=== PATIENT | female | born 1985 | race Caucasian/White ===

== ENCOUNTER 2018-04-04 18:44 | Emergency (ER) | payer MEDICAID ==
--- NOTE | 2018-04-04 19:06 | ER Document Report ---
ED General <TERE SAENZ - Last Filed: 04/04/18 23:08> - General Mode of Arrival: Medic Information source: Patient, Emergency Med Personnel <VINICIUS CERVANTES - Last Filed: 04/12/18 19:49> - General Stated Complaint: POSSIBLE SEIZURE Time Seen by Provider: 04/04/18 18:59 Notes: 33 y.o female presents to the ED via EMS s/p seizure. EMS reports 4 seizures per bystander. Pt reports that she doesn't know what happened. She reports that she woke up today and took a shower and went outside to smoke a cigarette and then went back inside to bed to rest because she feels very tired and then was woken when EMS arrived. Pt reports having seizures in the past and was told that they were stress related. She states that she has not had a seizure since 2011. Pt reports that she feels ok currently, just tired. She denies any pain. She denies urinating on herself. Pt reports that she takes Buspar for anxiety and depression. She states that she started taking it last August but had stopped it and then recently began taking it again. Pt recently moved here from [place], she has 5 kids. 4 of her kids are living with her currently at her friend's house and the 5th is in [place] at school. She states that the father of her children lives in [place] still. She states that she starts work this and she is looking for her own place to live. (VINICIUS CERVANTES) - Related Data Allergies/Adverse Reactions: amoxicillin Allergy (Verified 04/04/18 19:15) escitalopram [From Lexapro] Allergy (Verified 04/04/18 19:15) morphine Allergy (Verified 04/04/18 19:15) Past Medical History - Social History Smoking Status: Current Every Day Smoker Cigarette use (# per day): Yes - 1-1.5 packs/day at most Chew tobacco use (# tins/day): No Smoking Education Provided: Yes Frequency of alcohol use: Occasional - "yes but not every day" Drug Abuse: None Family History: Reviewed & Not Pertinent <VINICIUS CERVANTES - Last Filed: 04/12/18 19:49> Review of Systems - Review of Systems Constitutional: See HPI, Other - tired EENT: No symptoms reported Cardiovascular: No symptoms reported Respiratory: No symptoms reported Gastrointestinal: No symptoms reported Genitourinary: No symptoms reported Female Genitourinary: No symptoms reported Musculoskeletal: No symptoms reported Skin: No symptoms reported Hematologic/Lymphatic: No symptoms reported Neurological/Psychological: See HPI, Seizure -: Yes All other systems reviewed and negative <VINICIUS CERVANTES - Last Filed: 04/12/18 19:49> Physical Exam <TERE SAENZ - Last Filed: 04/04/18 23:08> <VINICIUS CERVANTES - Last Filed: 04/12/18 19:49> - Vital signs Vitals: Temp 98.7 F 04/04/18 18:44 - Notes Notes: Physical Exam: General: Alert, Oriented. Smells of alcohol. hoarse voice. HEENT: Normocephalic. Atraumatic. PERRL. Extraocular movements intact. Oropharynx clear. Neck: Supple. Non-tender. Respiratory: No respiratory distress. Rhonchi. Equal breath sounds bilaterally. Cardiovascular: Regular rate and rhythm. Abdominal: Normal Inspection. Non-tender. No distension. Normal Bowel Sounds. Back: Non-tender. No deformity or step off. Extremities: Moves all four extremities. Upper extremities: Normal inspection. Normal ROM. Lower extremities: Normal inspection. No edema. Normal ROM. Neurological: Normal cognition. AAOx3. Normal speech. Psychological: Appears depressed. Skin: Warm. Dry. Normal color. (VINICIUS CERVANTES) Course - Laboratory Result Diagrams: 04/04/18 18:34 04/04/18 18:34 <TERE SAENZ - Last Filed: 04/04/18 23:08> - Laboratory Result Diagrams: 04/04/18 18:34 04/04/18 18:34 <VINICIUS CERVANTES - Last Filed: 04/12/18 19:49> - Re-evaluation Re-evalutation: 04/04/18 23:04 The patient's friend has arrived, reports patient has not been sleeping much lately and has been drinking lots of caffeine. The patient also reports a recent stressful event which is similar to what used to trigger her seizures. I would suspect that if she does have a seizure disorder, the lack of sleep, the excessive use of caffeine, the use of alcohol, and the lack of sleep with the urinary tract infection could be enough to lower the seizure threshold resulting in the seizures that were witnessed tonight. (TERE SAENZ) - Vital Signs Vital signs: Temp Pulse Resp BP Pulse Ox 98.7 F 17 93/55 L 98 04/04/18 18:44 04/04/18 22:01 04/04/18 22:00 04/04/18 22:01 - Laboratory Laboratory results interpreted by me: 04/04/18 04/04/18 04/04/18 18:34 21:28 21:31 Sodium 145.1 H Chloride 108 H Carbon Dioxide 21 L BUN 5 L POC Glucose 203 H Urine Protein 100 H Urine Blood LARGE H Discharge <TERE SAENZ - Last Filed: 04/04/18 23:08> <VINICIUS CERVANTES - Last Filed: 04/12/18 19:49> - Discharge Clinical Impression: Seizure, Alcohol intoxication, Depression, Urinary tract infection Condition: Stable Disposition: HOME, SELF-CARE Additional Instructions: Seizure: You have had a seizure. Seizure disorders (epilepsy) of one sort or another affect about one out of 50 people. The seizure occurs because of abnormal electrical activity in the brain. Seizures may be due to drugs and alcohol, strokes, brain injury, or infection. In the most common form of epilepsy, no cause can be found. You will require further evaluation to determine the cause of your seizure, and to determine whether anti-seizure medication is required. This follow-up testing is important, so please call us if you encounter problems with scheduling of tests or appointments. YOU SHOULD NOT DRIVE until released to do so by your physician. The law requires that seizures be reported to the diesel pile driver operator's license bureau--a seizure while driving could be catastrophic. Call the doctor if seizures recur, or if you develop new symptoms such as fever, severe headache, stiff neck, confusion or increasing sleepiness, weakness or numbness, or visual problems. Urinary Tract Infection: Your evaluation indicates that you have a urinary tract infection. This is due to germs growing in the bladder. This is a common problem. This infection usually responds quickly to antibiotics. Your antibiotic should be taken exactly as prescribed. Drink plenty of fluids -- three to four quarts a day. Occasionally, a bladder anesthetic will be prescribed to help stop the feeling of urgency until the antibiotic has a chance to clear the infection. This may cause your urine to be dark orange. Certain urine infections require a culture. If the doctor obtained a culture, the results will be back in two days. You should call to see if a change in treatment is needed. A repeat urinalysis after you finish treatment is often recommended. The physician will let you know if further testing is required. Call the doctor if you develop fever, chills, flank pain, inability to urinate, or blood in the urine. Take the medication as prescribed. Drink plenty of fluids. Get plenty of sleep and rest. Avoid caffeine and any other stimulants. Follow-up with a local medical doctor to discuss management of your seizures, stress and sleeping difficulties. RETURN TO THE EMERGENCY ROOM IF ANY NEW OR WORSENING SYMPTOMS. Prescriptions: Cephalexin 10 ml PO TID #150 ml Scribe Attestation: 04/04/18 20:05 I personally performed the services described in the documentation, reviewed and edited the documentation which was dictated to the scribe in my presence, and it accurately records my words and actions. (TERE SAENZ) Scribe Documentation - Scribe Written by August:: August Alcala 04/04/18 1908 acting as scribe for :: Alirio <VINICIUS CERVANTES - Last Filed: 04/12/18 19:49>
[2018-04-04 19:20] LABS: ABSOLUTE BASOPHILS # (AUTO) 0.1 10^3/uL (0.0-0.2); ABSOLUTE EOSINOPHILS # (AUTO) 0.1 10^3/uL (0.0-0.6); ABSOLUTE MONOCYTES (AUTO) 0.5 10^3/uL (0.1-1.4); ABSOLUTE NEUT (AUTO) 7.2 10^3/uL (1.7-8.2); BASOPHILS % (AUTO) 0.5 % (0-2); HEMATOCRIT 38.1 % (36.0-47.0); HEMOGLOBIN 13.2 g/dL (12.0-15.5); LYMPHOCYTES % (AUTO) 20.3 % (13-45); MEAN CORPUSCULAR HEMOGLOBIN 33.2 pg (27.0-33.4); MEAN CORPUSCULAR HGB CONC 34.6 g/dL (32.0-36.0); MEAN CORPUSCULAR VOLUME 96 fl (80-97); MONOCYTES % (AUTO) 5.1 % (3-13); PLATELET COUNT 355 10^3/uL (150-450); RED BLOOD COUNT 3.97 10^6/uL (3.72-5.28); RED CELL DISTRIBUTION WIDTH 12.6 % (11.5-14.0); SEGMENTED NEUTROPHILS % (AUTO) 73.1 % (42-78); TOTAL CELLS COUNTED % (AUTO) 100 %; WHITE BLOOD COUNT 9.8 10^3/uL (4.0-10.5)
[2018-04-04 19:32] LABS: ALANINE AMINOTRANSFERASE 18 U/L (9-52); ALBUMIN 4.7 g/dL (3.5-5.0); ALCOHOL 71 mg/dL (NONE DETECTED); ALKALINE PHOSPHATASE 51 U/L (38-126); ANION GAP 16 (5-19); ASPARTATE AMINO TRANSFERASE 15 U/L (14-36); BILIRUBIN,DIRECT 0.3 mg/dL (0.0-0.4); BILIRUBIN,TOTAL 0.7 mg/dL (0.2-1.3); BLOOD UREA NITROGEN 5 mg/dL (7-20); CALCIUM 9.5 mg/dL (8.4-10.2); CARBON DIOXIDE 21 mmol/L (22-30); CHLORIDE 108 mmol/L (98-107); GLUCOSE 82 mg/dL (75-110); SODIUM 145.1 mmol/L (137-145); TOTAL PROTEIN 7.1 g/dL (6.3-8.2)
[2018-04-04] MEDS ORDERED: DEXTROSE 5%-LACTATED RINGERS 1,000 ML IV ONE (20:04)
[2018-04-04 22:00] LABS: APPEARANCE,URINE CLOUDY; BILIRUBIN,URINE NEGATIVE (NEGATIVE); COLOR,URINE RED; GLUCOSE, URINE NEGATIVE (NEGATIVE); KETONES,URINE NEGATIVE (NEGATIVE); LEUKOCYTE ESTERASE,URINE NEGATIVE (NEGATIVE); NITRITE,URINE NEGATIVE (NEGATIVE); PROTEIN,URINE 100 mg/dL (NEGATIVE); URINE SPECIFIC GRAVITY 1.011; UROBILINOGEN,URINE NEGATIVE mg/dL (<2.0)
[2018-04-04 22:20] LABS: URINE AMPHETAMINES SCREEN NEGATIVE; URINE BARBITURATES SCREEN NEGATIVE; URINE BENZODIAZEPINES SCREEN NEGATIVE; URINE COCAINE SCREEN NEGATIVE; URINE MARIJUANA (THC) SCREEN NEGATIVE; URINE METHADONE SCREEN NEGATIVE; URINE PHENCYCLIDINE SCREEN NEGATIVE
[2018-04-04 22:57] VITALS: BP 93/55
[2018-04-04] MEDS ORDERED: CEPHALEXIN 500 MG CAPSULE PO ONE (23:02)
[2018-04-04] MEDS ORDERED: LORAZEPAM 1 MG TABLET PO ONE (23:03)
== END 2018-04-04 23:10 | disposition home or self-care (01) ==
LOC: ER 18:44
DX: R56.9 Unspecified convulsions (principal); F32.9 Major depressive disorder, single episode, unspecified; N39.0 Urinary tract infection, site not specified; F10.129 Alcohol abuse with intoxication, unspecified; F17.210 Nicotine dependence, cigarettes, uncomplicated; Z88.0 Allergy status to penicillin
CPT/HCPCS: 36415; 80053; 80307; 81001; 82962; 83735; 84703; 85025; 87086; 96360; 99284

== ENCOUNTER 2019-02-14 12:17 | Emergency (ER) | payer MEDICAID ==
[2019-02-14] MEDS ORDERED: OXYCODONE-ACETAMINOPHEN 5-325 MG TABLET PO ONE (13:25)
[2019-02-14 14:01] LABS: ABSOLUTE EOSINOPHILS # (AUTO) 0.1 10^3/uL (0.0-0.6); ABSOLUTE LYMPHOCYTES (AUTO) 1.7 10^3/uL (0.5-4.7); ABSOLUTE MONOCYTES (AUTO) 0.3 10^3/uL (0.1-1.4); ABSOLUTE NEUT (AUTO) 8.9 10^3/uL (1.7-8.2); BASOPHILS % (AUTO) 0.3 % (0-2); EOSINOPHILS % (AUTO) 1.3 % (0-6); HEMATOCRIT 39.4 % (36.0-47.0); HEMOGLOBIN 13.3 g/dL (12.0-15.5); LYMPHOCYTES % (AUTO) 15.2 % (13-45); MEAN CORPUSCULAR HEMOGLOBIN 31.9 pg (27.0-33.4); MEAN CORPUSCULAR HGB CONC 33.7 g/dL (32.0-36.0); MEAN CORPUSCULAR VOLUME 95 fl (80-97); MONOCYTES % (AUTO) 2.6 % (3-13); PLATELET COUNT 324 10^3/uL (150-450); RED BLOOD COUNT 4.16 10^6/uL (3.72-5.28); RED CELL DISTRIBUTION WIDTH 12.9 % (11.5-14.0); SEGMENTED NEUTROPHILS % (AUTO) 80.6 % (42-78); TOTAL CELLS COUNTED % (AUTO) 100 %; WHITE BLOOD COUNT 11.1 10^3/uL (4.0-10.5)
[2019-02-14 14:21] LABS: ALANINE AMINOTRANSFERASE 13 U/L (9-52); ALBUMIN 4.1 g/dL (3.5-5.0); ALKALINE PHOSPHATASE 51 U/L (38-126); ANION GAP 8 (5-19); ASPARTATE AMINO TRANSFERASE 18 U/L (14-36); BILIRUBIN,DIRECT 0.2 mg/dL (0.0-0.4); BILIRUBIN,TOTAL 0.3 mg/dL (0.2-1.3); BLOOD UREA NITROGEN 7 mg/dL (7-20); CALCIUM 9.5 mg/dL (8.4-10.2); CARBON DIOXIDE 28 mmol/L (22-30); CHLORIDE 106 mmol/L (98-107); GLUCOSE 84 mg/dL (75-110); POTASSIUM 4.6 mmol/L (3.6-5.0); SODIUM 141.8 mmol/L (137-145); TOTAL PROTEIN 6.4 g/dL (6.3-8.2)
[2019-02-14 15:43] LABS: APPEARANCE,URINE TURBID; COLOR,URINE RED
[2019-02-14 15:46] LABS: BILIRUBIN,URINE NEGATIVE (NEGATIVE); GLUCOSE, URINE NEGATIVE (NEGATIVE); KETONES,URINE NEGATIVE (NEGATIVE); LEUKOCYTE ESTERASE,URINE NEGATIVE (NEGATIVE); NITRITE,URINE NEGATIVE (NEGATIVE); PROTEIN,URINE >=500 mg/dL (NEGATIVE); URINE SPECIFIC GRAVITY 1.019; UROBILINOGEN,URINE NEGATIVE mg/dL (<2.0)
--- NOTE | 2019-02-14 16:40 | RADIOLOGY REPORT (SQ) ---
EXAM DESCRIPTION: U/S NON OB PEL TV W/DOPPLER COMPLETED DATE/TIME: 02/14/2019 4:25 pm REASON FOR STUDY: heavy vaginal bleeding, abd pain COMPARISON: None. TECHNIQUE: Dynamic and static grayscale images acquired of the pelvis via transvaginal approach and recorded on PACS. Additional selected color Doppler and spectral images recorded. LIMITATIONS: None. FINDINGS: UTERUS: Contour normal. No mass. ENDOMETRIAL STRIPE: No focal or generalized thickening. No masses. CERVIX: No nabothian cysts. RIGHT OVARY AND DOPPLER: Normal size. No worrisome masses. Normal arterial vascular flow without evid ence for torsion. LEFT OVARY AND DOPPLER: Normal size. No worrisome masses. Normal arterial vascular flow without evide nce for torsion. FREE FLUID: None noted. OTHER: No other significant finding. MEASUREMENTS: UTERUS: 9.4 x 5.5 x 4.6 cm ENDOMETRIAL STRIPE: 5 mm RIGHT OVARY: 2.7 x 1.9 x 1.8 cm. LEFT OVARY: 1.6 x 1.2 x 1.4 cm. IMPRESSION: Unremarkable pelvic ultrasound. TECHNICAL DOCUMENTATION: JOB ID: [id number] [employer]- All Rights Reserved Rev Reading location - IP/workstation name: [email or web address]
--- NOTE | 2019-02-14 17:25 | ER Document Report ---
ED General - General Chief Complaint: Abdominal Pain Stated Complaint: ABDOMINAL PAIN,VAGINAL BLEEDING Time Seen by Provider: 02/14/19 13:18 Primary Care Provider: MODESTA CLINE MD [Primary Care Provider] - Follow up as needed Mode of Arrival: Ambulatory Information source: Patient Notes: Patient presents to the emergency department with complaints of heavy vaginal bleeding. She reports she started her period yesterday and began having severe abdominal pain. Patient reports the bleeding has gotten heavier along with pain. She was seen at urgent care and sent over to be evaluated because of the blood in her urine. (not a catheter collection). dENIES other symptoms such as fever vomiting diarrhea. Reports she is going through a pad and a half every hour. TRAVEL OUTSIDE OF THE [place] IN LAST 30 DAYS: No - HPI Onset: Yesterday Quality of pain: Cramping Severity: Severe Pain Level: 5 Associated symptoms: None Exacerbated by: Denies Relieved by: Denies Similar symptoms previously: Yes Recently seen / treated by doctor: Yes - Related Data Allergies/Adverse Reactions: amoxicillin Allergy (Verified 02/14/19 12:18) escitalopram [From Lexapro] Allergy (Verified 02/14/19 12:18) morphine Allergy (Verified 02/14/19 12:18) Past Medical History - General Information source: Patient - Social History Smoking Status: Current Every Day Smoker Cigarette use (# per day): Yes Chew tobacco use (# tins/day): No Frequency of alcohol use: Occasional Drug Abuse: None Lives with: Family Family History: Reviewed & Not Pertinent Patient has suicidal ideation: No Patient has homicidal ideation: No Neurological Medical History: Reports: Hx Seizures - no meds and no seizure in years Renal/ Medical History: Denies: Hx Peritoneal Dialysis Psychiatric Medical History: Reports: Hx Depression Past Surgical History: Reports: Hx Section Review of Systems - Review of Systems Notes: Review HPI for review of systems., All other systems negative Physical Exam - Vital signs Vitals: Temp Pulse Resp BP Pulse Ox 98.1 F 82 18 97/54 L 98 02/14/19 12:29 02/14/19 12:29 02/14/19 12:29 02/14/19 12:29 02/14/19 12:29 - Notes Notes: PHYSICAL EXAMINATION: GENERAL: nontoxic looking, anxious no acute distress HEAD: Atraumatic, normocephalic. EYES: Pupils equal round , extraocular movements intact, sclera anicteric, conjunctiva are normal. ENT: nares patent, . Moist mucous membranes. NECK: Normal range of motion, supple without lymphadenopathy LUNGS: CTAB and equal. No wheezes rales or rhonchi. HEART: Regular rate and rhythm without murmurs ABDOMEN: Soft, low abdominal tenderness. No guarding, no rebound BACK: Denies pain to palpation EXTREMITIES: Normal range of motion, no pitting edema. NEUROLOGICAL: Cranial nerves grossly intact. Normal sensory/motor exams. PSYCH: Normal mood, normal affect. SKIN: Warm, Dry, normal turgor, no rashes or lesions noted Course - Re-evaluation Re-evalutation: 02/14/19 20:56 I was contacted by the nurse because patient had not been seen by another provider. Patient was ready to leave. She reports she still hurting but f eeling better. She was instructed on UA, UTI with increased WBCs and symptoms, all other labs unremarkable, ultrasound unremarkable. Patient verbalized understanding to all instructions. Dictation of this chart was performed using voice recognition software; therefore, there may be some unintended grammatical errors.. - Vital Signs Vital signs: Temp Pulse Resp BP Pulse Ox 97.8 F 67 18 113/52 L 100 02/14/19 17:36 02/14/19 17:36 02/14/19 17:36 02/14/19 17:36 02/14/19 17:36 - Laboratory Result Diagrams: 02/14/19 13:46 02/14/19 13:46 Laboratory results interpreted by me: 02/14/19 02/14/19 13:46 13:46 WBC 11.1 H Seg Neutrophils % 80.6 H Monocytes % 2.6 L Absolute Neutrophils 8.9 H Urine Protein >=500 H Urine Blood LARGE H - Diagnostic Test Radiology reviewed: Image reviewed, Reports reviewed - unremarkable Discharge - Discharge Clinical Impression: Vaginal bleeding, UTI (urinary tract infection) Condition: Stable Disposition: HOME, SELF-CARE Instructions: Abdominal Pain ([facility]), Cephalexin ([facility]), Ob-Centrifugal Wax Molder Doctors, Urinary Tract Infection ([facility]), Vaginal Bleeding ([facility]) Additional Instructions: *You have been evaluated for vaginal BLEEDING, ABDOMINAL PAIN *Take Motrin as indicated for pain *Follow up with your DITCHING MACHINE OPERATOR or primary care provider for recheck within the next 5 days *Return to ED for worsening condition, changes, needs Prescriptions: Cephalexin Monohydrate [Keflex 500 mg Capsule] 500 mg PO BID #20 capsule Forms: Return to Work Referrals: MODESTA CLINE MD [Primary Care Provider] - Follow up as needed
[2019-02-14] MEDS ORDERED: HYDROCODONE/ACETAMINOPHEN 5-325 MG (6 TAB/ER DISP) PO PRN (17:29)
[2019-02-14 17:37] VITALS: BP 113/52
== END 2019-02-14 17:55 | disposition home or self-care (01) ==
LOC: ER 12:17
DX: N39.0 Urinary tract infection, site not specified (principal); N93.9 Abnormal uterine and vaginal bleeding, unspecified; Z88.0 Allergy status to penicillin; Z88.8 Allergy status to other drugs, medicaments and biological substances; Z88.5 Allergy status to narcotic agent; F17.210 Nicotine dependence, cigarettes, uncomplicated
CPT/HCPCS: 36415; 76830; 80053; 81001; 81025; 85025; 93976; 99284

== ENCOUNTER 2020-10-08 16:51 | Emergency (ER) | payer MEDICAID ==
[2020-10-08 16:57] VITALS: BP 123/55
--- NOTE | 2020-10-08 17:48 | ER Document Report ---
HPI - HPI Patient complains to provider of: dental infection Time Seen by Provider: 10/08/20 17:18 Onset/Duration: Worse Quality of pain: Achy Pain Level: 5 Context: Patient presents complaining of dental infection for the past 3 days. Patient states today she had left-sided facial swelling. Patient was recently started on clindamycin although has only had 2 doses. Patient denies any fever, difficulty breathing or difficulty swallowing. Associated Symptoms: denies: Fever, Nausea, Vomiting Exacerbated by: Denies Relieved by: Denies Similar symptoms previously: Yes Recently seen / treated by doctor: Yes - ROS ROS below otherwise negative: Yes Systems Reviewed and Negative: Yes All other systems reviewed and negative - CONSTITUTIONAL Constitutional: DENIES: Fever - EENT EENT: DENIES: Sore Throat, Ear Pain Notes: Dental pain - RESPIRATORY Respiratory: DENIES: Coughing - GASTROINTESTINAL Gastrointestinal: DENIES: Nausea, Patient vomiting - REPRODUCTIVE Reproductive: DENIES: : - DERM Skin Color: Normal Skin Problems: None Past Medical History - General Information source: Patient - Social History Smoking Status: Current Every Day Smoker Frequency of alcohol use: None Drug Abuse: None Occupation: None Lives with: Family Family History: Reviewed & Not Pertinent Neurological Medical History: Reports: Hx Seizures - no meds and no seizure in years Renal/ Medical History: Denies: Hx Peritoneal Dialysis Psychiatric Medical History: Reports: Hx Depression Past Surgical History: Reports: Hx Section Vertical Provider Document - CONSTITUTIONAL Agree With Documented VS: Yes Exam Limitations: No Limitations General Appearance: WD/WN, No Apparent Distress - INFECTION CONTROL TRAVEL OUTSIDE OF THE [place] IN LAST 30 DAYS: No - HEENT HEENT: Atraumatic, Normocephalic Mouth Diagram: 1 - Dental fracture, decay, tenderness Notes: Patient with gingival induration, no drainable abscess - NECK Neck: Normal Inspection, Supple - RESPIRATORY Respiratory: Breath Sounds Normal, No Respiratory Distress - CARDIOVASCULAR Cardiovascular: Regular Rate, Regular Rhythm - MUSCULOSKELETAL/EXTREMETIES Musculoskeletal/Extremeties: MAEW - NEURO Level of Consciousness: Awake, Alert, Appropriate Motor/Sensory: No Motor Deficit - DERM Integumentary: Warm, Dry, No Rash Course - Re-evaluation Re-evalutation: 10/08/20 17:46 Patient with left jaw dental infection with some mild facial swelling, no angioedema, no potential airway compromise. No concern for anaphylaxis. Patient advised that she should continue with her antibiotic at this time as she is only had 2 doses and needs to be on the antibiotic longer to notice significant improvement. Offered changing antibiotic if patient was concerned, patient is agreeable with continuing antibiotic at this time. Patient does have a pending dental appointment in 13 days. Patient advised of worsening signs or symptoms that she should return immediately for. Patient verbalized understanding and is agreeable with discharge plan of care. - Vital Signs Vital signs: Temp Pulse Resp BP Pulse Ox 98.5 F 104 H 16 123/55 L 100 10/08/20 16:54 10/08/20 16:54 10/08/20 16:54 10/08/20 16:54 10/08/20 16:54 - Laboratory Results Critical Laboratory Results Reviewed: No Critical Results - Radiology Results Critical Radiology Results Reviewed: No Critical Results Discharge - Discharge Clinical Impression: Infected dental caries Condition: Stable Disposition: HOME, SELF-CARE Instructions: Clindamycin ([facility]), Dentist, Dental Infection or Abscess ([facility]), Oral Narcotic Medication ([facility]), Toothache ([facility]) Additional Instructions: Return immediately for any new or worsening symptoms: Increased swelling, difficulty breathing, skin rash or any concerning new symptoms Followup with your primary care provider, call tomorrow to make a followup appointment Follow-up with a dental care provider for further management Prescriptions: Oxycodone HCl/Acetaminophen [Percocet 5-325 mg Tablet] 1 tab PO ASDIR PRN #10 tablet PRN Reason: Referrals: MODESTA CLINE MD [Primary Care Provider] - Follow up as needed
== END 2020-10-08 18:00 | disposition home or self-care (01) ==
LOC: ER 16:51
DX: K02.9 Dental caries, unspecified (principal); F17.200 Nicotine dependence, unspecified, uncomplicated
CPT/HCPCS: 99283